=== PATIENT | female | born 1945 | race Caucasian/White ===

== ENCOUNTER 2017-09-22 05:53 | Day surgery (SDC) | payer MEDICARE, OTHER ==
[~2017-09-22 05:53] MED LIST: Buffered Lidocaine 0.9% SYRIN* 5 ML/SYR SYRINGE INTRADERM ONE
[2017-09-22] MEDS ORDERED: Sodium Citrate/Citric Acid* 15 ML UDC PO ONE (06:00)
[2017-09-22] MEDS ORDERED: Sodium Citrate/Citric Acid* 15 ML UDC ONE (06:07)
[2017-09-22] MEDS ORDERED: Buffered Lidocaine 0.9% SYRIN* 5 ML/SYR SYRINGE ONE (06:07)
[2017-09-22] MEDS ORDERED: Silver Nitrate/Potassium Nitr* 1 EA STICK ONE (07:24)
[2017-09-22] MEDS ORDERED: Midazolam* 1 MG/ML 2 ML VIAL (2 MG) ONE (07:33)
[2017-09-22] MEDS ORDERED: fentaNYL* 50 MCG/ML 2 ML VIAL (100 MCG VIAL) ONE (07:33)
[2017-09-22] MEDS ORDERED: Lidocaine 2% PF * 5 ML VIAL ONE (07:34)
[2017-09-22] MEDS ORDERED: Propofol* 10 MG/ML 20 ML BTL IV PUSH ONE (07:34)
[2017-09-22] MEDS ORDERED: Ondansetron INJ* 2 MG/ML VIAL IV PRN (07:46)
[2017-09-22] MEDS ORDERED: fentaNYL* 50 MCG/ML 2 ML VIAL (100 MCG VIAL) IV PRN (07:46)
[2017-09-22] MEDS ORDERED: Ketorolac INJ* 30 MG/ML 1 ML VIAL IV PRN (07:46)
[2017-09-22] MEDS ORDERED: Ibuprofen TAB* 600 MG PO PRN (08:44)
[2017-09-22] MEDS ORDERED: Ketorolac INJ* 30 MG/ML 1 ML VIAL ONE (09:18)
[2017-09-22 11:35] VITALS: BP 152/78
--- NOTE | 2017-09-22 12:52 | OP ---
DATE OF OPERATION: 09/22/17 [facility] DATE OF : 47 SURGEON: Sincere Scott MD ANESTHESIOLOGIST: Dr. Joel Chaidez. ANESTHESIA: General endotracheal. PRE-OP DIAGNOSES: Postmenopausal bleeding, thickened endometrium. POST-OP DIAGNOSES: Postmenopausal bleeding, thickened endometrium. Pathology pending. ESTIMATED BLOOD LOSS: Minimal, less than 20 cc. FINDINGS: Small axial uterus, midline cervix, mildly stenotic cervix. There are two long thin polyps originating at the fundus and ending at approximately the level of the internal os. Both ostia were visualized. The remainder of the endometrium appeared atrophic. No adnexal masses were palpated. There was no uterine prolapse. COMPLICATIONS: None. COUNTS: Sponge, lap and needle count were x2. The patient was brought to recovery room awake and in stable condition. DESCRIPTION OF PROCEDURE: The patient was brought to the operating room. When general anesthesia was found to be adequate, the patient was prepped and draped in the usual sterile fashion in the dorsal lithotomy position. Exam under anesthesia was performed with the above findings noted. The weighted speculum was placed in the vagina, the anterior lip of the cervix was grasped with a single-tooth tenaculum. The cervix was gently dilated using the graduated Paez dilators. Initially there was some stenosis to the cervix; however, with the graduated Paez dilators the cervix was dilated. The cervix was dilated to a size 28. The scope was introduced with the above findings noted. The MyoSure was used to remove both polyps in their entirety. There was no polypoid tissue left in the uterus. The MyoSure was removed. The single-tooth tenaculum was removed from the anterior lip of the cervix. There was slight oozing at that site, pressure was held with the polyp forceps. Excellent hemostasis was achieved, all instruments removed from the vagina. The patient was brought to the recovery room, awake and in stable condition. [id number]/[facility] #: [id number] [facility]ENTERMary
== END 2017-09-22 10:22 | disposition home or self-care (01) ==
LOC: OR 05:53
PROVIDERS: ATTEND Obstetrics & Gynecology
DX: N95.0 Postmenopausal bleeding (principal); N84.0 Polyp of corpus uteri; M19.90 Unspecified osteoarthritis, unspecified site; M54.5 Low back pain
CPT/HCPCS: 88305; A9270-GY; J1885; J2250; J2704; J3010